=== PATIENT | male | born 1985 | race African-American/Black ===

== ENCOUNTER 2024-12-06 11:49 | Emergency (ER) | payer OTHER ==
[2024-12-06] MEDS: Take Home: Albuterol 18 GM Inhaler, 1 Inhaler Pack INH PRN (12:31)
== END 2024-12-06 12:36 ==
LOC: VM.ED 11:49
DX: J45.901 Unspecified asthma with (acute) exacerbation (principal); Z91.018 Allergy to other foods
CPT/HCPCS: 71046; 94640; 99284; 99285; A9270-GY; J7512

== ENCOUNTER 2025-02-01 19:22 | Emergency (ER) | payer MEDICAID, OTHER ==
[2025-02-01] MEDS: Take Home: Albuterol 18 GM Inhaler, 1 Inhaler Pack INH PRN (19:49)
== END 2025-02-01 19:59 | disposition home or self-care (01) ==
LOC: VM.ED 19:22
DX: J45.901 Unspecified asthma with (acute) exacerbation (principal); Z91.018 Allergy to other foods
CPT/HCPCS: 94640; 99283; 99284; A9270-GY

== ENCOUNTER 2025-02-05 12:40 | Emergency (ER) | payer SELFPAY ==
[2025-02-05 13:08] LABS: BASOPHILS ABSOLUTE AUTO 0.0 x10^3/uL (0.0-0.2); BASOPHILS PERCENT AUTO 0.5 % (0.2-1.2); EOSINOPHILS ABSOLUTE AUTO 0.9 x10^3/uL (0.0-0.5); EOSINOPHILS PERCENT AUTO 10.3 % (0.0-4.0); IMMATURE GRAN ABSOLUTE AUTO 0.02 x10^3/uL (0.00-0.07); IMMATURE GRAN PERCENT AUTO 0.20 % (0.00-0.43); LYMPHOCYTES ABSOLUTE AUTO 1.4 x10^3/uL (1.0-4.8); LYMPHOCYTES PERCENT AUTO 16.7 % (25.0-50.0); MONOCYTES ABSOLUTE AUTO 0.6 x10^3/uL (0.0-0.8); MONOCYTES PERCENT AUTO 7.3 % (2.0-11.0); NEUTROPHILS ABSOLUTE AUTO 5.4 x10^3/uL (1.8-7.7); NEUTROPHILS PERCENT AUTO 65.0 % (50.0-80.0); PLATELET COUNT,PLT 269 x10^3/uL (130-400); RED BLOOD CELL COUNT 4.51 x10^6/uL (4.5-6.0); WHITE BLOOD CELL COUNT,WBC 8.3 x10^3/uL (4.0-10.0)
[2025-02-05 13:29] LABS: A/G RATIO 0.80; ALANINE AMINOTRANSFERASE,ALT 60 U/L (16-63); ASPARTATE AMNIOTRANSFERASE,AST 64 U/L (15-37); BILIRUBIN TOTAL 0.5 mg/dL (0.2-1.0); BLOOD UREA NITROGEN,BUN 14 mg/dL (7-18); CARBON DIOXIDE,CO2 23 mmol/L (21-32); CHLORIDE,CL 106 mmol/L (98-107); CREATININE 1.1 mg/dL (0.70-1.30); ESTIMATED GFR 86 mL/min (>=60); GLUCOSE RANDOM 154 mg/dL (70-99); POTASSIUM,K 4.0 mmol/L (3.5-5.1); PROTEIN TOTAL,TP 7.2 g/dL (6.4-8.2); SODIUM,NA 139 mmol/L (136-145)
== END 2025-02-05 13:43 | disposition home or self-care (01) ==
LOC: VM.ED 12:40
DX: J45.909 Unspecified asthma, uncomplicated (principal); L08.9 Local infection of the skin and subcutaneous tissue, unspecified; S60.455A Superficial foreign body of left ring finger, initial encounter; Z91.018 Allergy to other foods; Z79.899 Other long term (current) drug therapy; W45.8XXA Other foreign body or object entering through skin, initial encounter
CPT/HCPCS: 36415; 80053; 85025; 94640; 99284; 99285; A9270-GY; J7512